=== PATIENT | male | born 1990 | race Caucasian/White ===

== ENCOUNTER 2022-01-16 01:25 | Emergency (ER) | payer SELFPAY ==
[~2022-01-16] VITALS: Ht 182.9 cm; Wt 127.3 kg
[2022-01-16 01:31] VITALS: BP 142/75
[2022-01-16] MEDS ORDERED: ketorolac trometh inj. 60 MG/2 ML VIAL IM ONE (03:00)
== END 2022-01-16 03:13 | disposition left against medical advice (07) ==
LOC: ER 01:26
DX: G89.29 Other chronic pain (principal)
CPT/HCPCS: 99281